=== PATIENT | male | born 1945 | race Caucasian/White ===

== ENCOUNTER → 2016-08-06 | Outpatient (CLI) | payer OTHER | LOC: FIMAGING 18:41 | PROVIDERS: ATTEND Physician Assistant Medical | DX: G35 Multiple sclerosis (principal) ==

== ENCOUNTER 2017-02-17 10:43 | Emergency (ER) | payer OTHER ==
[2017-02-17 10:49] VITALS: BP 135/84; PULSE 75; RESP 16; TEMP 97.9; O2SAT 97
[2017-02-17] MEDS ORDERED: FAMOTIDINE 20 MG TAB PO ONE (11:00)
[2017-02-17] MEDS ORDERED: diphenhydrAMINE 25 MG CAP PO ONE (11:00)
[2017-02-17] MEDS ORDERED: FAMOTIDINE 20 MG TAB ONE (11:01)
--- NOTE | 2017-02-17 11:19 | EDPHY ---
H & P Time Seen by Provider: 02/17/17 11:18 HPI/ROS: Chief complaint. Bee sting HPI. 71-year-old male presents emergency department with bee sting to the right side of his neck and right ankle yesterday. He has swelling to the right side of his neck as well as pass some pain with movement. No trouble breathing or swallowing. He has been using topical hydrocortisone so far but symptoms seem to be worsening. He has no history of significant reactions to bee stings. No chest discomfort or trouble breathing. ROS Constitutional. no fever/chills, no weakness Eyes. no problems with vision ENT. no sore throat, no nasal drainage Cardiovascular. no chest pain Respiratory. no shortness of breath, no cough Abdominal. no abdominal pain, no nausea/vomiting, no diarrhea . no problems urinating MS. no calf pain/swelling, no neck/back pain, no joint pain Skin. Redness from bee sting to right ankle and right neck Lymph. no swollen glands Neuro. no headache, no dizziness, no difficulty walking or with speech Past Medical/Surgical History: MS, of back pain, hypertension Social History: Single, nonsmoker, no alcohol Smoking Status: Never smoked Physical Exam: General Appearance: Alert well-developed male mild distress vital signs are stable Eyes: Pupils equal and round no pallor or injection. ENT, tympanic membranes normal. Oropharynx without swelling. No stridor. Speaks in full sentences Respiratory: There are no retractions, lungs are clear to auscultation. Cardiovascular: Regular rate and rhythm. Gastrointestinal: Abdomen is soft and nontender, no masses, bowel sounds normal. Neurological: Awake and alert, sensory and motor exams grossly normal. Skin: Erythema and sting to the right neck. No foreign body. Erythema to the right ankle again without foreign body. Musculoskeletal: Neck is supple nontender. Extremities symmetrical, full range of motion. Psychiatric: Patient is oriented X 3, there is no agitation. Constitutional: Initial Vital Signs Temperature (C) 36.6 C 02/17/17 10:46 Heart Rate 75 02/17/17 10:46 Respiratory Rate 16 02/17/17 10:46 Blood Pressure 135/84 H 02/17/17 10:46 O2 Sat (%) 97 02/17/17 10:46 O2 Delivery Mode Room Air Allergies/Adverse Reactions: No Known Allergies Allergy (Verified 02/17/17 10:49) Home Medications: Medication Instructions Recorded Amantadine 11/01/14 Amlodipine Besylate 11/01/14 Aspirin 81mg (OTC) 11/01/14 Atorvastatin Calcium 11/01/14 Avodart 0.5 MG (RX) 11/01/14 GABAPENTIN 11/01/14 Lisinopril 11/01/14 Namenda 10 mg 11/01/14 Valtrex 11/01/14 predniSONE 40 mg PO DAILY #6 tablet 02/17/17 Medical Decision Making Procedures: Prednisone and Benadryl given orally ED Course/Re-evaluation: Patient remained stable. He and I discussed treatment plan including criteria for return importance of follow-up and further evaluation. He expresses understanding and agreement Differential Diagnosis: The sting with localized reactions to right neck and right ankle. No evidence for systemic toxicity. No airway embarrassment or stridor. - Data Points Medications Given: Discontinued Medications Diphenhydramine HCl (Benadryl) 25 mg PO EDNOW ONE Stop: 02/17/17 11:01 Last Admin: 02/17/17 11:03 Dose: 25 mg Famotidine (Pepcid) 20 mg PO EDNOW ONE Stop: 02/17/17 11:01 Last Admin: 02/17/17 11:03 Dose: 20 mg Departure - Departure Disposition: Home, Routine, Self-Care Clinical Impression: Bee sting reaction Qualifiers: Encounter type: initial encounter Injury intent: accidental or unintentional Qualified Code(s): T63.441A - Toxic effect of venom of bees, accidental ( unintentional), initial encounter Condition: Good Instructions: Insect Bite or Sting (ED) Additional Instructions: Ice to stings next 24 hours. Benadryl 1 pill every 6-8 hours to help with swelling. Prednisone for the next 3 days to help with swelling. We will give your 1st dose here. Return for worsening symptoms trouble swallowing or breathing. Recheck in 2 days if not improving Referrals: Nasim Powell MD [Primary Care Provider] - 2-3 days, if not improved Prescriptions: predniSONE 40 mg PO DAILY #6 tablet
[2017-02-17] MEDS ORDERED: predniSONE 20 MG TAB PO ONE (11:35)
== END 2017-02-17 11:40 | disposition home or self-care (01) ==
DX: T63.441A Toxic effect of venom of bees, accidental (unintentional), initial encounter (principal); I10 Essential (primary) hypertension; Z79.82 Long term (current) use of aspirin

== ENCOUNTER → 2017-08-09 | Outpatient (CLI) | payer OTHER | LOC: FIMAGING 17:53 | PROVIDERS: ATTEND Physician Assistant Medical | DX: G35 Multiple sclerosis (principal) | CPT/HCPCS: G0103; G0472 ==

== ENCOUNTER → 2017-08-14 | Outpatient (CLI) | payer OTHER | LOC: FIMAGING 07:09 | PROVIDERS: ATTEND Internal Medicine | DX: Z13.6 Encounter for screening for cardiovascular disorders (principal); I70.8 Atherosclerosis of other arteries; I10 Essential (primary) hypertension ==

== ENCOUNTER → 2018-07-20 | Outpatient (CLI) | payer OTHER | LOC: FIMAGING 09:06 | PROVIDERS: ATTEND Physician Assistant Medical | DX: G35 Multiple sclerosis (principal) | CPT/HCPCS: 70551-PN ==